=== PATIENT | female | born 1970 | race Two or more races ===

== ENCOUNTER 2025-07-01 14:09 | Emergency (ER) | payer OTHER ==
[~2025-07-01] VITALS: Ht 172.7 cm; Wt 81.6 kg
[2025-07-01] MEDS: DICYCLOMINE HCL 10 MG CAPSULE PO ONE (15:00)
[2025-07-01] MEDS: IV NS 0.9% 1,000 ML BAG IV ONE (15:00)
[2025-07-01] MEDS: ONDANSETRON HCL/PF 4 MG/2 ML VIAL IVP ONE (15:00)
[2025-07-01] MEDS ORDERED: ONDANSETRON HCL/PF 4 MG/2 ML VIAL ONE (15:12)
[2025-07-01] MEDS ORDERED: DICYCLOMINE HCL 10 MG CAPSULE PO ONE (15:13)
[2025-07-01 15:44] LABS: PLATELET COUNT (AUTO) 414 K/uL (150-450); RED BLOOD CELL COUNT(AUTO) 4.90 MIL/uL (4.0-5.2); RED CELL DISTRIBUTION WIDTH 14.5 % (11.5-15.0); WHITE BLOOD COUNT (AUTO) 9.7 K/uL (4.3-11.0)
[2025-07-01 15:52] LABS: CALCIUM, SERUM 9.1 mg/dL (8.5-10.1); CREATININE 0.8 mg/dL (0.6-1.3); SODIUM SERUM 137.0 mmol/L (136-145); UREA NITROGEN, BLOOD 18.0 mg/dL (7-18)
[2025-07-01 15:58] LABS: ASPARTATE AMINOTRANSFERASE 12.0 U/L (15-37); TOTAL PROTEIN, SERUM 7.2 g/dL (6.4-8.2)
[2025-07-01 16:10] LABS: INR 1.08 (0.91-1.10)
[2025-07-01] MEDS ORDERED: DICY10CA37 PO (16:45)
[2025-07-01] MEDS ORDERED: ONDA4TAB5 PO (16:45)
[2025-07-01 19:27] VITALS: BP 121/81; TEMP 98.2; O2SAT 99
== END 2025-07-01 19:28 | disposition home or self-care (01) ==
LOC: ER 14:14
DX: K51.911 Ulcerative colitis, unspecified with rectal bleeding (principal); E86.0 Dehydration; Z79.52 Long term (current) use of systemic steroids
CPT/HCPCS: 99285; 96374; 96361; 93005; 74018; 85025; 80048; 80076; 36415; 85730; J7512; J2405

== ENCOUNTER 2025-07-03 10:09 | Emergency (ER) | payer OTHER ==
[~2025-07-03] VITALS: Ht 172.7 cm; Wt 86.2 kg
[~2025-07-03 10:09] MED LIST: DICY10CA37 PO; ONDA4TAB5 PO
[2025-07-03] MEDS ORDERED: ONDANSETRON HCL/PF 4 MG/2 ML VIAL ONE (10:50)
[2025-07-03] MEDS ORDERED: MORPHINE SULFATE INJ 4 MG/ML DISP.SYRIN ONE (10:50)
[2025-07-03] MEDS ORDERED: PANTOPRAZOLE 40 MG VIAL ONE (10:50)
[2025-07-03] MEDS: PANTOPRAZOLE 40 MG VIAL IV ONE (11:00)
[2025-07-03] MEDS: ONDANSETRON HCL/PF 4 MG/2 ML VIAL IVP ONE (11:00)
[2025-07-03] MEDS: IV NS 0.9% 1,000 ML BAG IV ONE (11:00)
[2025-07-03] MEDS: MORPHINE SULFATE INJ 2 MG/ML DISP.SYRIN IV ONE (11:01)
[2025-07-03 11:05] LABS: PLATELET COUNT (AUTO) 405 K/uL (150-450); RED BLOOD CELL COUNT(AUTO) 4.60 MIL/uL (4.0-5.2); RED CELL DISTRIBUTION WIDTH 14.5 % (11.5-15.0); WHITE BLOOD COUNT (AUTO) 10.0 K/uL (4.3-11.0)
[2025-07-03 11:17] LABS: CALCIUM, SERUM 9.4 mg/dL (8.5-10.1); CREATININE 1.1 mg/dL (0.6-1.3); SODIUM SERUM 135.0 mmol/L (136-145); UREA NITROGEN, BLOOD 11.0 mg/dL (7-18)
[2025-07-03 11:19] LABS: INR 1.13 (0.91-1.10)
[2025-07-03 11:22] LABS: ASPARTATE AMINOTRANSFERASE 10.0 U/L (15-37); TOTAL PROTEIN, SERUM 6.5 g/dL (6.4-8.2)
[2025-07-03] MEDS ORDERED: PRED50TA PO (12:36)
[2025-07-03] MEDS ORDERED: PRED20TA PO (12:40)
[2025-07-03 12:53] VITALS: BP 125/80; TEMP 98; O2SAT 98
[2025-07-03 12:53] LABS: EOSINOPHILS % (MANUAL) 2 % (0-4); LYMPHOCYTES % (MANUAL) 9 % (16-48); MONOCYTES % (MANUAL) 4 % (0-11.0); NEUTROPHILS % (MANUAL) 85 (42-76); PLATELET ESTIMATE ADEQUATE
[2025-07-03 13:21] LABS: APPEARANCE,URINE CLEAR (CLEAR); BLOOD, URINE 3+ Ery/uL (NEGATIVE); LEUKOCYTE ESTERASE ,URINE 2+ (NEGATIVE); NITRITE, URINE NEGATIVE (NEGATIVE); UGLUCOSE NEGATIVE (NEGATIVE)
[2025-07-03 13:35] LABS: ADD URINE CULTURE YES; SQUAMOUS EPITHELIAL CELL,UR 0-2 /HPF (None Seen)
[2025-07-04] MEDS ORDERED: MESA4ENE4 RC (14:59)
[2025-07-04] MEDS ORDERED: MESA10007 RC (14:59)
== END 2025-07-03 12:53 | disposition home or self-care (01) ==
LOC: ER 10:11
DX: K51.911 Ulcerative colitis, unspecified with rectal bleeding (principal); E87.1 Hypo-osmolality and hyponatremia; E87.6 Hypokalemia; R07.9 Chest pain, unspecified; R42 Dizziness and giddiness; R73.9 Hyperglycemia, unspecified
CPT/HCPCS: 99285; 74177; 96374; 96375; 71045; 96361; 93005; 85027; 80048; 87077; 87086; 83690; 80076; 85007; 87186; 81001; 36415; 85730; J2919; J2270; J2405; J7030; J7050; J2470; Q9967

== ENCOUNTER 2025-07-04 13:15 | Emergency (ER) | payer OTHER ==
[~2025-07-04] VITALS: Ht 172.7 cm; Wt 81.6 kg
[~2025-07-04 13:15] MED LIST changes: +PRED20TA PO; +PRED50TA PO
[2025-07-04] MEDS: IV NS 0.9% 1,000 ML BAG IV ONE (13:54)
[2025-07-04] MEDS ORDERED: MESA10007 RC (14:59)
[2025-07-04] MEDS ORDERED: MESA4ENE4 RC (14:59)
[2025-07-04 15:20] VITALS: BP 122/80; TEMP 98.2; O2SAT 98
== END 2025-07-04 15:20 | disposition home or self-care (01) ==
LOC: ER 13:16
DX: K51.911 Ulcerative colitis, unspecified with rectal bleeding (principal); Z79.52 Long term (current) use of systemic steroids
CPT/HCPCS: J7030